=== PATIENT | male | born 1975 | race Caucasian/White ===

== ENCOUNTER 2024-05-21 14:19 | Day surgery (SDC) | payer OTHER, SELFPAY ==
--- NOTE | 2024-05-21 | PATH_ITS ---
[facility] Accession Number: [id number] No. of containers..04 Tissue . 01 Material submitted: . PART A: sigmoid colon - SIGMOID POLYP PART B: colon - ASCENDING POLYP PART C: splenic flexure - SPLENIC FLEXURE POLYP PART D: rectosigmoid junction - RECTAL SIGMOID POLYP . 01 Diagnosis: A. SIGMOID COLON, POLYP: Tubular adenoma. . B. ASCENDING COLON, POLYP: Sessile serrated adenoma. . C. SPLENIC FLEXURE, POLYP: Tubular adenoma. . D. RECTOSIGMOID, POLYP: Tubular adenoma. [facility] 05/22/2024 1052 Local . 01 Electronically signed: . Melanie Dale MD, Pathologist NPI- [id number] . 01 Gross description: . Part A: SIGMOID POLYP: Received in formalin is 1 fragment(s) of [place], soft tissue measuring 0.4 x 0.3 x 0.2 cm submitted entirely in 1 cassette(s) Part B: ASCENDING POLYP : Received in formalin are multiple fragment(s) of [place], soft tissue measuring 0.1 x 0.1 x 0.1 cm to 0.4 x 0.4 x 0.3 cm submitted entirely in 1 cassette(s) Part C: SPLENIC FLEXURE POLYP: Received in formalin is 1 fragment(s) of [place], soft tissue measuring 0.7 x 0.7 x 0.3 cm submitted entirely in 1 cassette(s) Part D: RECTAL SIGMOID POLYP: Received in formalin are multiple fragment(s) of [place], soft tissue measuring 0.1 x 0.1 x 0.1 cm to 0.7 x 0.6 x 0.6 cm submitted entirely in 1 cassette(s) /TINO 05/22/2024 0107 Local . 01 Pathologist provided ICD-10: D12.2, D12.3, D12.5, D12.7 . 01 CPT . 782128, 725330, [id number], [id number] Specimen Comment: A courtesy copy of this report has been sent to [phone] Performed at: [address] [id number] MD [place] Coll[place] MD Phone: [phone]
[2024-05-21 15:25] VITALS: BP 123/81; PULSE 74; RESP 14; TEMP 36.7; O2SAT 99
--- NOTE | 2024-05-21 15:50 | PM.HP.1 ---
History of Present Illness History of Present Illness Date Patient Seen: 05/21/24 Time Patient Seen: 15:50 Chief complaint: SDC Narrative: 49-year-old male here for asymptomatic colon cancer screening. No family history of colon cancer. He does not have anyone accompanying him here in the endoscopy lab and would like to try to get the test done without sedation if possible. He consents to propofol only if he truly needs it. Meds Home Medications and Allergies Allergies Allergy/AdvReac Type Severity Reaction Status Date / Time Penicillins Allergy Verified 05/21/24 15:23 acetaminophen AdvReac Anaphylaxis Verified 05/21/24 15:23 [From Excedrin Migraine] aspirin AdvReac Anaphylaxis Verified 05/21/24 15:23 [From Excedrin Migraine] caffeine AdvReac Anaphylaxis Verified 05/21/24 15:23 [From Excedrin Migraine] Review of Systems Review of Systems ROS: Yes All systems reviewed with the patient and are negative except as otherwise documented Exam Vital Signs (past 8 hours): - 05/21/24 15:25 Temperature 98.0 F Pulse Rate 74 Respiratory Rate 14 Blood Pressure 123/81 Pulse Oximetry 99 Oxygen Delivery Method Room Air Oxygen Delivery Method Room Air Const General: cooperative HENMT Head: normal to inspection Eyes General: appearance normal, both eyes and all related structures Neck Neck: normal visual inspection Chest Chest: normal inspection of the chest Resp Effort & Inspection: normal respiratory effort Cardio Rate: regular rate GI Inspection: normal to inspection Skin General: no rashes or lesions noted Neuro General: patient alert and patient awake Extrem General: normal to inspection and no pedal edema Psych Appearance: grossly normal Assessment & Plan Assessment & Plan narrative: 49-year-old male here for colon cancer screening. Colonoscopy is pursued today. Time-Based Coding :: [TOTAL MINUTES] spent with patient and on the chart (including review of chart, obtaining history, exam, reviewing outside data, placing orders, documenting exam and treatment plan, and counseling patient) on [DATE].
--- NOTE | 2024-05-21 15:52 | PM.PREOP ---
Pre-operative Note Interval Note History & Physical reviewed/Exam performed by Physician: Yes Changes to H&P: No ASA Class (for procedural sedation): I
--- NOTE | 2024-05-21 17:07 | PM.OP.COLON ---
Operative Date/Time/Diagnoses Date of procedure: 05/21/24 Time of procedure: 17:07 Pre-op diagnosis: Colon cancer screening Post-op diagnosis: same Procedure & Clinicians Study performed: Colonoscopy with hot snare and cold snare polypectomy Same procedure as scheduled: Yes Indications: Colon cancer screening Surgeon: Rj Reid Procedure Notes SCOAP/Timeout: Done Procedure in detail: After the risks and benefits were explained, written and verbal informed consent was obtained. The patient was brought into the procedure room and placed into the left lateral decubitus position. This was done without conscious sedation or propofol. Digital rectal examination was accomplished. The scope was introduced into the patient and advanced under direct visualization to the cecum as identified by the appendiceal orifice and ileocecal valve. The scope was slowly withdrawn to carefully examine the mucosa for any defects or lesions. Comprehensive imaging was accomplished throughout the rectum including the dentate line. The colon was decompressed, the scope was then removed from the patient who tolerated the procedure well. During the exam the patient had some mild nausea and was treated with IV Zofran by the attending nurse machine stacker. Pediatric colonoscope Bowel prep adequate Scope withdrawal time: 20 minutes Sedation minutes: 0 Complications: none Impression: There was a 7 mm sessile polyp in the ascending colon removed with hot snare. There was a 7 mm flat polyp in the region of the splenic flexure removed with hot snare. In the sigmoid colon there was a 6 mm sessile polyp removed with hot snare. In the rectosigmoid region there was a semi pedunculated 8 mm polyp removed with hot snare as well. No significant additional pathology appreciated throughout. Grade 2 hemorrhoids were noted on direct views. Endoscopic diagnosis 1. Grade 1-2 internal hemorrhoids 2. Multiple colon polyps Post-procedure Plan for aftercare: 1. Await histology 2. Repeat colonoscopy will likely be suggested for 3 years. Disposition: PACU
[2024-05-21 17:12] VITALS: BP 147/93; PULSE 72; RESP 16; TEMP 36.7; O2SAT 8
== END 2024-05-21 17:20 | disposition home or self-care (01) ==
PROVIDERS: PCP Family Medicine; Referring Provider Internal Medicine Gastroenterology; Visit Provider Internal Medicine Gastroenterology
PROC: 0DJD8ZZ Inspection of Lower Intestinal Tract, Via Natural or Artificial Opening Endoscopic (ICD-10-PCS; CPT 45378; principal; 2024-05-21 15:30)
DX: Z12.11 Encounter for screening for malignant neoplasm of colon (principal); K64.1 Second degree hemorrhoids; D12.5 Benign neoplasm of sigmoid colon; D12.2 Benign neoplasm of ascending colon; D12.3 Benign neoplasm of transverse colon; D12.7 Benign neoplasm of rectosigmoid junction
CPT/HCPCS: 45385; J2704